=== PATIENT | female | born 1980 | race African-American/Black ===

== ENCOUNTER 2016-03-04 21:14 | Emergency (ER) | payer SELFPAY ==
[~2016-03-04] VITALS: Ht 154.9 cm; Wt 115.7 kg
[~2016-03-04 21:14] MED LIST: IBUP-1007 PO; ONDA4TAB10 SL
[2016-03-04 22:00] LABS: NEG OBC UR NEG; POS OBC UR POS
[2016-03-04] MEDS ORDERED: CEFTRIAXONE IM 250 MG VIAL. IM ONE (22:00)
[2016-03-04] MEDS ORDERED: KETOROLAC TROMETHAMINE 60 MG/2 ML SYRINGE. IM ONE (22:00)
[2016-03-04] MEDS ORDERED: ONDANSETRON ODT 4 MG TAB.RAPDIS PO ONE (22:00)
[2016-03-04] MEDS ORDERED: AZITHROMYCIN 250 MG TABLET PO ONE (22:00)
[2016-03-04 22:02] LABS: BILIRUBIN,URINE NEGATIVE (NEG); GLUCOSE,URINE NEGATIVE (NEG); NITRITE,URINE NEGATIVE (NEG); PH,URINE 6.5; PROTEIN,URINE NEGATIVE (NEG-TRACE); UROBILINOGEN,URINE 0.2 mg/dL (0.2 mg/dL)
[2016-03-04 22:10] LABS: BACTERIA,URINE MANY /HPF (0-FEW); SQUAMOUS EPITHELIAL CELL,UR MANY /LPF
[2016-03-04 22:11] LABS: RBC,URINE 0 /HPF (0-2); TRICHOMONAS,URINE PRESENT
--- NOTE | 2016-03-04 22:22 | RAD ---
PROCEDURE CT abdomen and pelvis without contrast dated 03/04/2016. HISTORY See severe lower abdominal pain and nausea for 1 week. TECHNIQUE Contiguous axial imaging of the abdomen and pelvis performed without the administration of intravenous contrast. Exposure: One or more of the following individualized dose reduction techniques were utilized for this exam: 1. Automated exposure control. 2. Adjustment of the mA and/or kV according to patient size. 3. Use of iterative reconstruction technique. COMPARISON None. FINDINGS Limited images of lung bases are clear. Heart size within normal limits. No pleural or pericardial effusion. Solid abdominal viscera not well evaluated in the absence of contrast material. No apparent attenuation abnormality of the liver or spleen. Pancreas, adrenal glands, gallbladder and kidneys are unremarkable. No stone or hydronephrosis. Unopacified GI tract normal in caliber and contour. No focal bowel wall thickening. No inflammatory change in the mesentery. The appendix is normal in caliber. No ascites or lymphadenopathy. Images of pelvis show nondistended urinary bladder. No calcific bladder stone. Uterus and adnexa unremarkable. No free fluid or lymphadenopathy. Bone window show no acute findings. IMPRESSION No acute abnormality of abdomen or pelvis. Normal appendix. Electronically signed by: Jesse Adame (Mar 04, 2016 22:21:44)
--- NOTE | 2016-03-04 22:25 | PHYS DOC ---
Past Medical History Past Medical History: Asthma Past Surgical History: Other Additional Past Surgical Histo: Nose fx with repair. Alcohol Use: Occasionally Drug Use: None Adult General Chief Complaint Chief Complaint: ABDOMINAL PAIN HPI HPI 45-year-old female with cramping abdominal pain that started around 6 PM in her lower abdomen. Patient states she has had symptoms like this before with a previous that was miscarried. Patient has been approximately 4 times she states 3 of which were viable pregnancies. 2 of which went full term and one was by 5 weeks. She also had one that was a miscarriage in the second trimester. Patient denies any vaginal bleeding or dysuria hematuria. She denies any discharge. She would like to be tested for sexually transmitted illness. She denies any significant abdominal surgery. Review of Systems Review of Systems Constitutional: Denies fever or chills [] Eyes: Denies change in visual acuity, redness, or eye pain [] HENT: Denies nasal congestion or sore throat [] Respiratory: Denies cough or shortness of breath [] Cardiovascular: No additional information not addressed in HPI [] GI: Has abdominal pain, denies nausea, denies vomiting, denies bloody stools, denies diarrhea [] : Denies dysuria or hematuria [] Musculoskeletal: Denies back pain or joint pain [] Integument: Denies rash or skin lesions [] Neurologic: Denies headache, focal weakness or sensory changes [] Endocrine: Denies polyuria or polydipsia [] Current Medications Current Medications Current Medications Medications (Trade) Dose Ordered Sig/Marco Start Time Stop Time Status Last Admin Dose Admin Azithromycin (Zithromax) 1,000 mg 1X ONCE 03/04/16 22:00 03/04/16 22:01 DC 03/04/16 22:27 1,000 MG Ceftriaxone Sodium (Rocephin Im) 250 mg 1X ONCE 03/04/16 22:00 03/04/16 22:01 DC 03/04/16 22:26 250 MG Ketorolac Tromethamine (Toradol Im) 60 mg 1X ONCE 03/04/16 22:00 03/04/16 22:01 DC 03/04/16 22:26 60 MG Metronidazole (Flagyl) 1,000 mg 1X ONCE 03/04/16 22:30 03/04/16 22:31 DC 03/04/16 22:29 1,000 MG Ondansetron HCl (Zofran Odt) 4 mg 1X ONCE 03/04/16 22:00 03/04/16 22:01 DC 03/04/16 22:27 4 MG Allergies Allergies Allergies Coded Allergies Type Severity Reaction Last Updated Verified No Known Drug Allergies 12/16/13 No Physical Exam Physical Exam Constitutional: Well developed, well nourished, no acute distress, non-toxic appearance. [] HENT: Normocephalic, atraumatic, bilateral external ears normal, oropharynx moist, no oral exudates, nose normal. [] Eyes: PERRLA, EOMI, conjunctiva normal, no discharge. [] Neck: Normal range of motion, no tenderness, supple, no stridor. [] Cardiovascular:Heart rate regular rhythm, no murmur [] Lungs & Thorax: Bilateral breath sounds clear to auscultation [] Abdomen: Bowel sounds normal, soft, no tenderness, no masses, no pulsatile masses. [] Pelvic: Pelvic exam reveals a whitish discharge and a closed cervical os, there is some left adnexal tenderness, there is no CMT, there is no bleeding Skin: Warm, dry, no erythema, no rash. [] Back: No tenderness, no CVA tenderness. [] Extremities: No tenderness, no cyanosis, no clubbing, ROM intact, no edema. [] Neurologic: Alert and oriented X 3, normal motor function, normal sensory function, no focal deficits noted. [] Psychologic: Affect normal, judgement normal, mood normal. [] Current Patient Data Lab Values Laboratory Tests Test 03/04/16 21:40 Urine Collection Type Unknown Urine Color Yellow Urine Clarity Cloudy Urine pH 6.5 Urine Specific [place] 1.025 Urine Protein Negativemg/dL (NEG-TRACE) Urine Glucose (UA) Negativemg/dL (NEG) Urine Ketones (Stick) Negativemg/dL (NEG) Urine Blood Negative (NEG) Urine Nitrite Negative (NEG) Urine Bilirubin Negative (NEG) Urine Urobilinogen Dipstick 0.2mg/dL (0.2 mg/dL) Urine Leukocyte Esterase Moderate (NEG) Urine RBC 0/HPF (0-2) Urine WBC 11-20/HPF (0-4) Urine Squamous Epithelial Cells Many/LPF Urine Bacteria Many/HPF (0-FEW) Urine Mucus Mod/LPF Urine Trichomonas Present Urine Test Negative (NEG) EKG EKG [] Radiology/Procedures Radiology/Procedures CT the abdomen and pelvis without contrast: No acute abnormality of the abdomen or pelvis. Normal appendix. Course & Med Decision Making Course & Med Decision Making Pertinent Labs and Imaging studies reviewed. (See chart for details) Her urinalysis showed moderate leukocyte esterase which I will treat with antibiotics. Her pelvic exam revealed some thick white discharge. I also treated the patient for any sexual transmitted illness. CT of her abdomen and pelvis was negative for any acute abnormality. She was discharged without incident. Dragon Disclaimer Dragon Disclaimer This electronic medical record was generated, in whole or in part, using a voice recognition dictation system. Departure Departure Impression: Primary Impression: Lower abdominal pain Additional Impression: UTI (urinary tract infection) Disposition: 01 HOME, SELF-CARE Condition: GOOD Referrals: NO PCP (PCP) Patient Instructions: Abdominal Pain, [id number] Additional Instructions: Please follow-up with your primary doctor for your lower abdominal pain in the next 2-3 days. Take your antibiotic as prescribed. Return to the ER if you develop any worsening of your symptoms. Scripts Cephalexin (Keflex)500 Mg Capsule1 Cap PO BID #14 CAP Prov:YURI VINCENT DO 03/04/16 Problem Qualifiers YURI VINCENT DO Mar 04, 2016 22:25
[2016-03-04 22:30] VITALS: BP 132/81
[2016-03-04] MEDS ORDERED: METRONIDAZOLE 500 MG TABLET. PO ONE (22:30)
[2016-03-04] MEDS ORDERED: NITR100C62 PO (22:32)
[2016-03-04] MEDS ORDERED: CEPH-264 PO (22:44)
== END 2016-03-04 22:40 | disposition home or self-care (01) ==
LOC: ER 21:14
DX: N39.0 Urinary tract infection, site not specified (principal); J45.909 Unspecified asthma, uncomplicated
CPT/HCPCS: 74176; 81001; 81025; 87086; 87491; 87591; 96372; 99285; J0696; J1885; Q0144; Q0162

== ENCOUNTER 2016-10-28 04:31 | Emergency (ER) | payer SELFPAY ==
[~2016-10-28] VITALS: Ht 154.9 cm; Wt 122.5 kg
[~2016-10-28 04:31] MED LIST changes: +CEPH-264 PO; +NITR100C62 PO
[2016-10-28 04:33] VITALS: BP 146/106
[2016-10-28] MEDS ORDERED: ONDANSETRON PF 4 MG/2 ML VIAL. IV ONE (04:45)
[2016-10-28] MEDS ORDERED: ONDANSETRON PF 4 MG/2 ML VIAL. ONE (04:47)
[2016-10-28] MEDS ORDERED: IV NORMAL SALINE 1000ML BAG 1,000 ML IV ONE (05:00)
[2016-10-28] MEDS ORDERED: KETOROLAC TROMETHAMINE 30 MG/ML INJ. ONE (05:24)
[2016-10-28 08:20] LABS: ALBUMIN 2.9 g/dL (3.4-5.0); ALBUMIN/GLOBULIN RATIO 0.8 (1.0-1.7); CALCIUM 8.3 mg/dL (8.5-10.1); CREATININE 0.9 mg/dL (0.6-1.0); GFR 85.7; POTASSIUM 3.6 mmol/L (3.5-5.1); TOTAL BILIRUBIN 0.1 mg/dL (0.2-1.0); TOTAL PROTEIN 6.6 g/dL (6.4-8.2)
[2016-10-28 09:01] LABS: HEMATOCRIT 38.9 % (36.0-47.0); HEMOGLOBIN 12.9 g/dL (12.0-15.5); MEAN CORPUSCULAR HEMOGLOBIN 28 pg (25-35); MEAN CORPUSCULAR HGB CONC 33 g/dL (31-37); MEAN CORPUSCULAR VOLUME 83 fL (79-100); RED BLOOD COUNT 4.69 x10^6/uL (3.50-5.40); WHITE BLOOD COUNT 8.2 x10^3/uL (4.0-11.0)
[2016-10-28 09:02] LABS: BASO # 0.1 x10^3/uL (0.0-0.2); BASO % 1 % (0-3); EOS % 1 % (0-3); LYMPH # 3.3 x10^3/uL (1.0-4.8); LYMPH % 41 % (24-48); MONO % 9 % (0-9); NEUT % 48 % (31-73); PLATELET COUNT 233 x10^3/uL (140-400); RED CELL DISTRIBUTION WIDTH 15.2 % (11.5-14.5)
[2016-10-28 09:39] LABS: BILIRUBIN,URINE NEGATIVE (NEG); GLUCOSE,URINE NEGATIVE (NEG); NITRITE,URINE NEGATIVE (NEG); PROTEIN,URINE NEGATIVE (NEG-TRACE); RBC,URINE OCC /HPF (0-2); UROBILINOGEN,URINE 0.2 mg/dL (0.2 mg/dL)
[2016-10-28 09:40] LABS: BACTERIA,URINE MANY /HPF (0-FEW); SQUAMOUS EPITHELIAL CELL,UR MANY /LPF
--- NOTE | 2016-10-28 11:32 | RAD ---
CT scan of the abdomen and pelvis with contrast 10/28/2016 Clinical history: Abdominal pain for 3 days. Technique: After the intravenous administration of 75 cc of Omnipaque 300, contiguous, 5 mm axial sections were obtained through the abdomen and pelvis. One or more of the following individualized dose reduction techniques were utilized for this study: 1. Automated exposure control. 2. Adjustment of the mA and/or kV according to patient size. 3. Use of iterative reconstruction technique. Findings: Comparison study is dated 03/04/2016. Images through the lung bases demonstrate minimal dependent subsegmental atelectasis bilaterally. A 3 mm low-attenuation lesion is seen within the right lobe of liver consistent with a hepatic cyst. The spleen, pancreas, adrenal glands and kidneys are within normal limits. The abdominal aorta tapers normally. The gallbladder is contracted. No free fluid or free air is seen within the abdomen. There is no evidence of bowel obstruction. The appendix is well visualized and is within normal limits. Images through the pelvis demonstrate the urinary bladder distended with urine. Calcifications are seen within the pelvis consistent with phleboliths. A very small amount of free fluid is seen within the pelvis. No adnexal mass is seen. The osseous structures are unchanged. Impression: There is small amount of free fluid seen within the pelvis. No additional acute abnormality is seen.
== END 2016-10-28 07:20 | disposition home or self-care (01) ==
LOC: ER 04:31
DX: R10.9 Unspecified abdominal pain (principal); R11.0 Nausea; J45.909 Unspecified asthma, uncomplicated
CPT/HCPCS: 36415; 74177; 80053; 81001; 81025; 83690; 85025; 96361; 96374; 99285; J2405; J7030

== ENCOUNTER 2016-12-08 22:42 | Emergency (ER) | payer SELFPAY ==
[~2016-12-08] VITALS: Ht 154.9 cm; Wt 104.3 kg
[2016-12-08 22:48] VITALS: BP 134/91
[2016-12-08] MEDS ORDERED: PENI500T PO (23:00)
[2016-12-08] MEDS ORDERED: NAPR500T PO (23:00)
--- NOTE | 2016-12-08 23:01 | PHYS DOC ---
Past Medical History Past Medical History: Asthma Past Surgical History: Other Additional Past Surgical Histo: Nose fx with repair. Alcohol Use: Occasionally Drug Use: None Adult General Chief Complaint Chief Complaint: DENTAL PROBLEM HPI HPI Patient is a 36 year old female presents to the emergency department with complaints of left lower dental pain for 2 weeks. With swallowing or phonation. She has no fever. Review of Systems Review of Systems Constitutional: Denies fever or chills [] Eyes: Denies change in visual acuity, redness, or eye pain [] HENT: Denies nasal congestion or sore throat; does complain of dental pain [] Respiratory: Denies cough or shortness of breath [] Cardiovascular: No additional information not addressed in HPI [] GI: Denies abdominal pain, nausea, vomiting, bloody stools or diarrhea [] : Denies dysuria or hematuria [] Musculoskeletal: Denies back pain or joint pain [] Integument: Denies rash or skin lesions [] Neurologic: Denies headache, focal weakness or sensory changes [] Endocrine: Denies polyuria or polydipsia [] Allergies Allergies Allergies Coded Allergies Type Severity Reaction Last Updated Verified No Known Drug Allergies 12/16/13 No Physical Exam Physical Exam Constitutional: Well developed, well nourished, no acute distress, non-toxic appearance. [] HEENT: Tooth #20 with areas, tooth is tender to palpate. There is no surrounding gingival erythema. Neck: Normal range of motion, no tenderness, supple without lymphadenopathy, no stridor. [] Cardiovascular:Heart rate regular rhythm, no murmur [] Lungs & Thorax: Bilateral breath sounds clear to auscultation [] Skin: Warm, dry, no erythema, no rash. [] Current Patient Data Vital Signs Vital Signs Date Time Temp Pulse Resp B/P (MAP) Pulse Ox O2 Delivery O2 Flow Rate FiO2 12/08/16 22:48 98.0 93 26 100 Room Air 98.0 EKG EKG [] Radiology/Procedures Radiology/Procedures [] Course & Med Decision Making Course & Med Decision Making Pertinent Labs and Imaging studies reviewed. (See chart for details) [] Dragon Disclaimer Dragon Disclaimer This electronic medical record was generated, in whole or in part, using a voice recognition dictation system. Departure Departure Impression: Primary Impression: Dental caries Disposition: 01 HOME, SELF-CARE Condition: STABLE Referrals: NO PCP (PCP) Patient Instructions: Dental Caries Additional Instructions: Take medications as directed. You have been provided with a list of dental referral options. Please notify one of these offices and seek follow-up for repair of your dental decay. Scripts Penicillin V Potassium (PENICILLIN V POTASSIUM) 500 Mg Tablet 1 TAB PO QID, #40 TAB Prov: KITA KC APRN 12/08/16 Naproxen (NAPROSYN) 500 Mg Tablet 500 MG PO BID, #20 TAB Prov: KITA KC APRN 12/08/16 KITA KC APRN Dec 08, 2016 23:01
[2016-12-08] MEDS ORDERED: NAPROXEN 500 MG TABLET PO ONE (23:15)
== END 2016-12-08 23:18 | disposition home or self-care (01) ==
LOC: ER 22:42
DX: K02.9 Dental caries, unspecified (principal); K08.89 Other specified disorders of teeth and supporting structures; J45.909 Unspecified asthma, uncomplicated
CPT/HCPCS: 99283

== ENCOUNTER 2017-11-04 10:18 | Emergency (ER) | payer SELFPAY ==
[~2017-11-04] VITALS: Ht 157.5 cm; Wt 113.5 kg
[~2017-11-04 10:18] MED LIST changes: +NAPR-683 PO; +PENI500T PO
[2017-11-04 11:55] VITALS: BP 148/77
[2017-11-04] MEDS ORDERED: IPRATRPIUM/ALBUTEROL 0.5/2.5MG 3 ML NEBU. NEB ONE (12:30)
[2017-11-04] MEDS ORDERED: methylPREDNISolone SOD SUCC PF 125 MG/2 ML VIAL. IM ONE (12:30)
[2017-11-04] MEDS ORDERED: PROAIR HFA8.5 GM INH (13:25)
[2017-11-04] MEDS ORDERED: PRED20TA PO (13:25)
--- NOTE | 2017-11-04 13:26 | PHYS DOC ---
Past Medical History Past Medical History: Asthma Additional Past Medical Histor: GOUT Past Surgical History: Other Additional Past Surgical Histo: Nose fx with repair. Additional Information: 0.5 PPD Alcohol Use: Occasionally Drug Use: None Adult General Chief Complaint Chief Complaint: ASTHMA HPI HPI Patient is a 37 year old female with a history of asthma presents to the ED complaining of cough 2 days. Describes the cough as dry. Associated symptoms include rhinorrhea and sore throat. States same symptoms as previous asthma exacerbations. States she's been using her inhaler at home. Denies fever, nausea /vomiting, chest pain, shortness of breath, dizziness, weakness, headache,/ vomiting or abdominal pain. Review of Systems Review of Systems Constitutional: Denies fever or chills [] Eyes: Denies change in visual acuity, redness, or eye pain [] HENT: Complains of rhinorrhea and sore throat. Respiratory: Complains of cough. Denies shortness of breath. Cardiovascular: No additional information not addressed in HPI [] GI: Denies abdominal pain, nausea, vomiting, bloody stools or diarrhea [] : Denies dysuria or hematuria [] Musculoskeletal: Denies back pain or joint pain [] Integument: Denies rash or skin lesions [] Neurologic: Denies headache, focal weakness or sensory changes [] All other systems were reviewed and found to be within normal limits, except as documented in this note. Current Medications Current Medications Current Medications Medications (Trade) Dose Ordered Sig/Marco Start Time Stop Time Status Last Admin Dose Admin Albuterol/ Ipratropium (Duoneb) 3 ml 1X ONCE 11/04/17 12:30 11/04/17 12:31 DC 11/04/17 12:58 3 ML Methylprednisolone Sodium Succinate (SOLU-Medrol 125MG VIAL) 125 mg 1X ONCE 11/04/17 12:30 11/04/17 12:31 DC 11/04/17 12:45 125 MG Allergies Allergies Allergies Coded Allergies Type Severity Reaction Last Updated Verified No Known Drug Allergies 12/16/13 No Physical Exam Physical Exam Constitutional: Well developed, well nourished, no acute distress, non-toxic appearance. [] HENT: Normocephalic, atraumatic, bilateral external ears normal, oropharynx moist, no oral exudates, nose normal. [] Eyes: PERRLA, EOMI, conjunctiva normal, no discharge. [] Neck: Normal range of motion, no tenderness, supple, no stridor. [] Cardiovascular:Heart rate regular rhythm, no murmur [] Lungs & Thorax: Bilateral breath sounds. Mild wheezing bilaterally. Abdomen: Bowel sounds normal, soft, no tenderness, no masses, no pulsatile masses. [] Skin: Warm, dry, no erythema, no rash. [] Back: No tenderness, no CVA tenderness. [] Extremities: No tenderness, no cyanosis, no clubbing, ROM intact, no edema. [] Neurologic: Alert and oriented X 3, normal motor function, normal sensory function, no focal deficits noted. [] Psychologic: Affect normal, judgement normal, mood normal. [] Current Patient Data Vital Signs Vital Signs Date Time Temp Pulse Resp B/P (MAP) Pulse Ox O2 Delivery O2 Flow Rate FiO2 11/04/17 12:58 Room Air 11/04/17 11:55 97.4 97 22 148/77 (100) 97 97.4 EKG EKG [] Radiology/Procedures Radiology/Procedures [] Course & Med Decision Making Course & Med Decision Making Pertinent Labs and Imaging studies reviewed. (See chart for details) []Patient improved after breathing treatment. States she is much better. On re- examination, Patient is not tachypneic. O2 saturation is 98%. Discussed symptomatic treatment, hydration [id number] medications. Will prescribe short course of prednisone. Discussed follow-up and reasons to return to the ED. Patient understands and agrees with plan. Staff Physician Addendum: I was working in the ER during the course of this patient's visit. I was available for consultation as needed, but I was not directly involved in the care of this patient. Dragon Disclaimer Dragon Disclaimer This electronic medical record was generated, in whole or in part, using a voice recognition dictation system. Departure Departure Impression: Primary Impression: Asthma exacerbation Disposition: HOME, SELF-CARE Condition: IMPROVED Referrals: NO PCP (PCP) RENETTA LUDWIG MD Patient Instructions: Asthma, Adult Scripts Albuterol Sulfate (PROAIR HFA INHALER) 8.5 Gm Hfa.aer.ad 1 PUFF INH PRN Q6HRS PRN for SHORTNESS OF BREATH, #1 INHALER 0 Refills Prov: JESSICA ECHOLS 11/04/17 Prednisone (PREDNISONE) 20 Mg Tablet 2 TAB PO DAILY for 5 Days, #10 TAB Prov: JESSICA ECHOLS 11/04/17 JESSICA ECHOLS Nov 04, 2017 13:26 JESSI POWELL MD Nov 06, 2017 20:36
== END 2017-11-04 13:45 | disposition home or self-care (01) ==
LOC: ER 10:18
DX: J45.901 Unspecified asthma with (acute) exacerbation (principal); F17.200 Nicotine dependence, unspecified, uncomplicated
CPT/HCPCS: 94640; 96372; 99283; J2930; J7620

== ENCOUNTER 2019-12-17 12:53 | Emergency (ER) | payer SELFPAY ==
[~2019-12-17] VITALS: Ht 154.9 cm; Wt 104.5 kg
[~2019-12-17 12:53] MED LIST changes: +ALBU2.5V8 INH; +PRED20TA PO
[2019-12-17] MEDS ORDERED: AMOX500T PO (14:53)
--- NOTE | 2019-12-17 14:53 | ED.ADGEN ---
Past Medical History Past Medical History: No Pertinent History Additional Past Medical Histor: GOUT Past Surgical History: No Surgical History Additional Past Surgical Histo: Nose fx with repair. Smoking Status: Never Smoker Alcohol Use: None Drug Use: None General Adult EDM: Chief Complaint: SORE THROAT HPI: HPI: Patient is a 39 year old AA female who presents emergency department with co mplaints of sore throat and a fever since yesterday. She denies any shortness of breath, cough, difficulty swallowing, chest pain, palpitations, abdominal pain, nausea, vomiting, diarrhea, rash, headache, or ear pain. Patient states she does have body aches all over. She reports that she has had strep infection for years. The patient currently rates her pain a 10 out of 10 on pain scale, she denies any alleviating factors, the pain is worse with swallowing. Review of Systems: Review of Systems: Complete ROS is negative unless otherwise noted in HPI. Allergies: Allergies: Allergies Coded Allergies Type Severity Reaction Last Updated Verified No Known Drug Allergies 12/16/13 No Physical Exam: PE: See Above Constitutional: Well developed, well nourished, no acute distress, non-toxic appearance, obese. [] HENT: Normocephalic, atraumatic, bilateral external ears normal, erythema of posterior pharynx, nose normal. [] Eyes: PERRLA, EOMI, conjunctiva normal, no discharge. [] Neck: Normal range of motion, no stridor. [] Cardiovascular:Heart rate regular rhythm Lungs & Thorax: Respirations even and unlabored, no retractions, no respiratory distress Skin: Warm, dry, no erythema, no rash. [] Extremities: No cyanosis, ROM intact, no edema. [] Neurologic: Alert and oriented X 3, no focal deficits noted. [] Psychologic: Affect normal, judgement normal, mood normal. [] Current Patient Data: Vital Signs: Vital Signs Date Time Temp Pulse Resp B/P (MAP) Pulse Ox O2 Delivery O2 Flow Rate FiO2 12/17/19 14:00 97.8 82 18 97 Room Air 97.8 EKG: EKG: [] Heart Score: Risk Factors: Risk Factors: DM, Current or recent (<one month) smoker, HTN, HLP, family history of CAD, obesity. Risk Scores: Score 0 - 3: 2.5% MACE over next 6 weeks - Discharge Home Score 4 - 6: 20.3% MACE over next 6 weeks - Admit for Clinical Observation Score 7 - 10: 72.7% MACE over next 6 weeks - Early Invasive Strategies Radiology/Procedures: Radiology/Procedures: Rapid strep is positive [] Course & Med Decision Making: Course & Med Decision Making Pertinent Labs and Imaging studies reviewed. (See chart for details) [] Eduin Disclaimer: Eduin Disclaimer: This electronic medical record was generated, in whole or in part, using a voice recognition dictation system. Departure Departure Impression: Primary Impression: Acute streptococcal pharyngitis Disposition: 01 DC HOME SELF CARE/HOMELESS Condition: STABLE Referrals: NO PCP (PCP) Patient Instructions: Strep Throat, [id number] Additional Instructions: Fill prescription and use as directed. Recommend warm salt water gargles as needed for relief of discomfort. Alternate Tylenol and ibuprofen as needed for fever/pain. Discard your toothbrush tomorrow and begin using a new toothbrush. Follow-up with primary care doctor if symptoms persist. Return to the ER if symptoms worsen. [facility] [address] [place] [address] [facility] [address] [place] [address] [facility] [address] [facility] [address] [facility] [address] [place] [address] [facility] [address] [place] [address] [facility] [address] [place] [address] [facility] [address] [place] [address] [facility] [address] [place] [address] [facility] [address] [place] [address] [facility] [address] [place] [address] Scripts Amoxicillin (AMOXICILLIN) 500 Mg Tablet 1 TAB PO BID for 10 Days, #20 TAB 0 Refills Prov: LASHELL SHEEHAN APRN 12/17/19 LASHELL SHEEHAN APRN Dec 17, 2019 14:53
== END 2019-12-17 15:07 | disposition home or self-care (01) ==
LOC: ER 12:53
DX: J02.0 Streptococcal pharyngitis (principal); R50.9 Fever, unspecified; L53.9 Erythematous condition, unspecified; Z98.890 Other specified postprocedural states
CPT/HCPCS: 87880; 99283